=== PATIENT | female | born 1990 | race African-American/Black ===

== ENCOUNTER 2024-03-13 09:24 | Emergency (ER) | payer BC ==
[2024-03-13 09:33] VITALS: BP 129/82; PULSE 72; RESP 20; TEMP 98.4; BMI 37.8
[2024-03-13] MEDS ORDERED: ONDANSETRON 4 MG/2 ML VIAL ONE (09:47)
[2024-03-13] MEDS ORDERED: FAMOTIDINE 20 MG/50 ML IVPB 20 MG/50 ML MG IVPB ONE (09:47)
[2024-03-13] MEDS: ONDANSETRON 4 MG/2 ML VIAL IVPUSH ONE (10:12)
[2024-03-13] MEDS: FAMOTIDINE 20 MG/50 ML IVPB 20 MG/50 ML MG IVPB ONE (10:12)
[2024-03-13] MEDS: SODIUM CHLORIDE 0.9% 500 ML INFUS.BAG IV ONE (10:12)
[2024-03-13 10:21] LABS: PH,URINE 6.5 (5.0-8.0); URINE APPEARANCE CLEAR; URINE BILIRUBIN NEGATIVE (NEGATIVE); URINE COLOR YELLOW; URINE GLUCOSE (UA) NEGATIVE (NEGATIVE); URINE KETONE 1+ (NEGATIVE); URINE LEUK ESTERASE NEGATIVE (NEGATIVE); URINE NITRITE NEGATIVE (NEGATIVE); URINE PROTEIN NEGATIVE (NEGATIVE); URINE UROBILINOGEN 0.2 mg/dL (0.2-1.0)
[2024-03-13 10:29] LABS: HCG,QUALITATIVE URINE Negative
[2024-03-13 10:31] LABS: BASO % 0.2 % (0-2.0); EOS % 0.3 % (0-4.5); HEMATOCRIT 37.7 % (32.4-45.2); HEMOGLOBIN 11.7 GM/dL (10.7-15.3); LYMPH % 7.4 % (8-40); MCH 22.3 pg (25.7-33.7); MCHC 30.9 g/dl (32.0-36.0); MEAN CELL VOLUME 72.2 fl (80-96); MEAN PLT VOLUME 8.2 fl (7.5-11.1); MONO % 3.8 % (3.8-10.2); NEUT % 88.3 % (42.8-82.8); PLATELET COUNT 309 10^3/uL (134-434); RBC 5.22 M/mm3 (3.60-5.2); RDW 15.3 % (11.6-15.6); WHITE BLOOD COUNT 13.1 K/mm3 (4.0-10.0)
[2024-03-13 10:34] LABS: INR 1.06 (0.83-1.09); PROTHROMBIN TIME (PATIENT) 12.2 SEC (9.7-13.0)
[2024-03-13 10:37] LABS: ACTIVATED PTT 35.4 SECONDS (25.2-36.5)
[2024-03-13 10:44] LABS: ALBUMIN 3.6 g/dl (3.4-5.0); BLOOD UREA NITROGEN 14.2 mg/dL (7-18)
[2024-03-13] MEDS ORDERED: ACETAMINOPHEN INJECTION 100 ML ONE (10:45)
[2024-03-13 10:47] LABS: CREATININE 0.6 mg/dL (0.55-1.3)
[2024-03-13 10:48] LABS: BILIRUBIN,TOTAL 0.4 mg/dL (0.2-1); TOT PROT 7.8 g/dl (6.4-8.2)
[2024-03-13] MEDS: ACETAMINOPHEN 1000 MG/100 ML BAG IVPB ONE (11:02)
[2024-03-13 11:37] LABS: HIV INTERPRETATION NEGATIVE (NEGATIVE)
== END 2024-03-13 18:08 | disposition home or self-care (01) ==
LOC: JER 09:24
PROC: 3E033GC Introduction of Other Therapeutic Substance into Peripheral Vein, Percutaneous Approach (ICD-10-PCS; principal; 2024-03-13)
PROC: 3E033NZ Introduction of Analgesics, Hypnotics, Sedatives into Peripheral Vein, Percutaneous Approach (ICD-10-PCS; 2024-03-13)
PROC: 3E033GC Introduction of Other Therapeutic Substance into Peripheral Vein, Percutaneous Approach (ICD-10-PCS; 2024-03-13)
DX: K52.9 Noninfective gastroenteritis and colitis, unspecified (principal); R10.84 Generalized abdominal pain; R11.2 Nausea with vomiting, unspecified; R19.7 Diarrhea, unspecified; R51.9 Headache, unspecified
CPT/HCPCS: 36415; 74177-TC; 76705-TC; 80053; 81003; 84703; 85025; 85610; 85730; 86803; 86850; 86900; 86901; 87086; 87389; 99285-25; J0131